=== PATIENT | female | born 1965 | race American Indian/Alaskan Native ===

== ENCOUNTER 2017-11-23 13:33 | Emergency (ER) | payer OTHER ==
--- NOTE | 2017-11-23 13:48 | Emergency Department Report ---
Blank Doc - Documentation Documentation: Patient is a 52-year-old black female who is coming in with 10 to lower abdominal pain. Patient states she has intense pain started at 3 AM in the suprapubic region. Patient has not urinated but does not feel the sensation that she has an urge to urinate. Patient denies any vaginal bleeding trauma. Patient states the pain radiates to her lower back was midline and is not flank. Patient extremely uncomfortable and will not put her legs down she is holding her legs in a position as though she is in labor. Patient will be given something for pain and will be sent for CT abdomen and pelvis with contrast urinalysis and blood work will be ordered as well. Is
[2017-11-23] MEDS ORDERED: MORPHINE IV ONE (13:50)
[2017-11-23] MEDS ORDERED: TORADOL IV ONE (13:50)
[2017-11-23] MEDS ORDERED: ZOFRAN IV ONE (13:50)
[2017-11-23 14:06] LABS: Basophils # (Auto) 0.1 K/mm3 (0.0-0.1); Basophils % (Auto) 0.6 % (0.0-1.8); Eosinophils % (Auto) 0.1 % (0.0-4.3); Lymphocytes # (Auto) 0.7 K/mm3 (1.2-5.4); Monocytes # (Auto) 0.7 K/mm3 (0.0-0.8); Monocytes % (Auto) 6.2 % (0.0-7.3)
[2017-11-23 14:10] LABS: Hematocrit 37.9 % (30.3-42.9); Mean Corpuscular HGB Conc 32 % (30-34); Platelet Count 269 K/mm3 (140-440); Red Blood Count 5.94 M/mm3 (3.65-5.03); Red Cell Distribution Width 15.7 % (13.2-15.2)
[2017-11-23 14:15] LABS: Mean Corpuscular Hemoglobin 20 pg (28-32); Mean Corpuscular Volume 64 fl (79-97)
[2017-11-23 14:27] LABS: Alanine Aminotransferase 13 units/L (7-56); Albumin 4.3 g/dL (3.9-5); BUN/Creatinine Ratio 10; Blood Urea Nitrogen 5 mg/dL (7-17); Hemolysis Index 17
[2017-11-23 15:04] LABS: Basophils % (Manual) 0 % (0.0-1.8); Eosinophils % (Manual) 0 % (0.0-4.3); RBC Morphology Normal; Total Cells Counted 100
--- NOTE | 2017-11-23 15:14 | Cat Scan Report ---
FINAL REPORT PROCEDURE: CT ABDOMEN PELVIS W CON TECHNIQUE: Computerized axial tomography of the abdomen and pelvis was performed after the IV injection of iodinated nonionic contrast. HISTORY: severe abd pain COMPARISON: No prior studies are available for comparison. FINDINGS: Lower Lung mercer: There is a small amount of dependent atelectasis. Lung bases otherwise appear clear. Upper Abdomen: There is a 6.9 millimeter low-density nodule in the caudate lobe of the liver. This is difficult to characterize given its small size although appears represent a small hepatic cyst. The liver is otherwise unremarkable. The gallbladder, the adrenal glands, the pancreas in the spleen are unremarkable. Kidneys, Ureters and Urinary bladder: There is a sub centimeter low-density nodule in the periphery of the cortex of the left kidney which appears represent a small renal cortical cyst. There also appears to be a sub centimeter renal cortical cyst in the midportion of the right kidney laterally. Kidneys, the ureters and urinary bladder otherwise are unremarkable. Retroperitoneum: Abdominal aorta appears normal. Nonspecific subcentimeter lymph nodes are seen in the retroperitoneum. No pathologically enlarged lymph nodes are identified. Bowel: No focal bowel abnormalities are identified with the exception of minimal diverticulosis left side of the colon. Normal-appearing appendix is seen in the right lower quadrant. There is some thickening or fluid in the pericolonic gutter on the right and left inferiorly. Moderate size umbilical hernia visualized containing adipose tissue. No herniated loops of bowel are seen. Reproductive organs: Uterus is deviated to the left of midline. There appears to be a sub serosal nodule in the right side of the fundus of the uterus measuring 1.4 centimeters suggesting a sub serosal fibroid. Small to moderate amount of free fluid is seen in the cul-de-sac extending to the right and left adnexa greater on the right than the left. Margins of the right ovary are slightly ill-defined. Small cystic changes seen in the right ovary. Other: No acute bony abnormalities are seen. IMPRESSION: Small hepatic cyst visualized as well as small renal cortical cyst. Small to moderate amount of free fluid seen in the cul-de-sac extending to the right left adnexa although greater on the right than the left. Margin the right ovary slightly ill-defined. The ovary does not appear to be enlarged. If clinically indicated pelvic ultrasound could be obtained for further evaluation. Small cystic changes visualized. Small amount of fluid or minimal thickening visualized in the inferior aspect of the right and left pericolonic gutters. Minimal colonic diverticulosis without evidence of diverticulitis. Moderate umbilical hernia as described.
--- NOTE | 2017-11-23 15:33 | Emergency Department Report ---
ED Female HPI - General Chief complaint: Urogenital-Female Stated complaint: vaginal pain Time Seen by Provider: 11/23/17 13:42 Source: patient, family Mode of arrival: Stretcher Limitations: No Limitations - History of Present Illness Initial comments: Patient is a 52-year-old black female who is coming in with pain 10/10 to lower abdominal pain. Patient states she has intense pain started at 3 AM in the suprapubic region. Patient has not urinated but does not feel the sensation that she has an urge to urinate. Patient denies any vaginal bleeding trauma. Patient states the pain radiates to her lower back was midline and is not flank. She denies any fever or chills. Patient does have low-grade temperature. Positive nausea or vomiting. Pain is 10 out of 10 and cramping. Nothing makes it better and nothing makes it worse. Patient blood pressure on arrival is 180/120 and history of high blood pressure on medication, which she did not take today.. MD Complaint: pelvic pain, other (nausea and vomiting) -: This morning Location: suprapubic Radiation: L flank Severity: severe Severity scale (0 -10): 10 Quality: cramping, other (pressure and reports "I feel like something is falling out") Consistency: constant Improves with: none Worsens with: none Are you Now?: No Last Menstrual Period: 11/23/17 (today) EDC: 08/30/18 Associated Symptoms: abdominal pain. denies: vaginal discharge, vaginal bleeding, nausea/vomiting, fever/chills, headaches, loss of appetite, dysuria, hematuria, rash, seizure, shortness of breath, syncope, weakness - Related Data Sexually active: Yes Previous Rx's Medication Instructions Recorded Last Taken Type Cyclobenzaprine [Flexeril 10mg] 10 mg PO TID PRN #30 tablet 11/23/14 Unknown Rx Gabapentin [Neurontin] 300 mg PO QHS #30 capsule 11/23/14 Unknown Rx Metoprolol [Lopressor TAB] 12.5 mg PO BID #60 tablet 11/23/14 Unknown Rx traMADol [Ultram 50 MG tab] 50 mg PO Q4H PRN #20 tablet 11/23/14 Unknown Rx Acetaminophen [Non-Aspirin Extra 500 mg PO Q8H PRN #12 tablet 11/23/17 Unknown Rx Strength] Levofloxacin [Levaquin] 750 mg PO QDAY #10 tablet 11/23/17 Unknown Rx Naproxen [Naprosyn TAB] 500 mg PO BID PRN #12 tablet 11/23/17 Unknown Rx Promethazine [Phenergan TAB] 25 mg PO Q8HR PRN #12 tab 11/23/17 Unknown Rx Allergies Allergy/AdvReac Type Severity Reaction Status Date / Time No Known Allergies Allergy Verified 11/12/13 22:33 ED Review of Systems ROS: Stated complaint: vaginal pain Other details as noted in HPI Comment: All other systems reviewed and negative Constitutional: no symptoms reported ENT: denies: throat pain, congestion Respiratory: no symptoms reported Cardiovascular: denies: chest pain, palpitations, dyspnea on exertion, orthopnea , edema, syncope, paroxysmal nocturnal dyspnea Gastrointestinal: abdominal pain, nausea, vomiting. denies: diarrhea, constipation, melena, hematochezia Genitourinary: other (pressure and feels like something is falling out of her vagina). denies: urgency, dysuria, frequency, hematuria, discharge, dyspareunia Musculoskeletal: back pain. denies: joint swelling, arthralgia, myalgia Skin: denies: rash Neurological: denies: headache, weakness, numbness, paresthesias, confusion, abnormal gait, vertigo ED Past Medical Hx - Past Medical History Previous Medical History?: Yes Hx Hypertension: Yes - Surgical History Past Surgical History?: Yes Additional Surgical History: left foot surgery. tubal ligation - Family History Family history: hypertension - Social History Smoking Status: Never Smoker Substance Use Type: None - Medications Home Medications: Home Medications Medication Instructions Recorded Confirmed Last Taken Type Cyclobenzaprine [Flexeril 10mg] 10 mg PO TID PRN #30 tablet 11/23/14 05/04/16 Unknown Rx Gabapentin [Neurontin] 300 mg PO QHS #30 capsule 11/23/14 05/04/16 Unknown Rx Metoprolol [Lopressor TAB] 12.5 mg PO BID #60 tablet 11/23/14 05/04/16 Unknown Rx traMADol [Ultram 50 MG tab] 50 mg PO Q4H PRN #20 tablet 11/23/14 05/04/16 Unknown Rx Acetaminophen [Non-Aspirin Extra 500 mg PO Q8H PRN #12 tablet 11/23/17 Unknown Rx Strength] Levofloxacin [Levaquin] 750 mg PO QDAY #10 tablet 11/23/17 Unknown Rx Naproxen [Naprosyn TAB] 500 mg PO BID PRN #12 tablet 11/23/17 Unknown Rx Promethazine [Phenergan TAB] 25 mg PO Q8HR PRN #12 tab 11/23/17 Unknown Rx ED Physical Exam - General Limitations: No Limitations General appearance: alert, in no apparent distress - Head Head exam: Present: atraumatic, normocephalic, normal inspection - Eye Eye exam: Present: normal appearance, PERRL, EOMI. Absent: nystagmus, periorbital swelling, periorbital tenderness Pupils: Present: normal accommodation - ENT ENT exam: Present: normal exam, normal orophraynx, mucous membranes moist - Neck Neck exam: Present: normal inspection, tenderness, full ROM, other (no cspine tenderness). Absent: meningismus, lymphadenopathy, thyromegaly - Respiratory Respiratory exam: Present: normal lung sounds bilaterally. Absent: respiratory distress, chest wall tenderness - Cardiovascular Cardiovascular Exam: Present: regular rate, normal rhythm, normal heart sounds. Absent: systolic murmur, diastolic murmur - GI/Abdominal GI/Abdominal exam: Present: soft, tenderness (left pelvic area tenderness), normal bowel sounds. Absent: distended, guarding, rebound, rigid, hyperactive bowel sounds, hypoactive bowel sounds, organomegaly, mass, bruit, pulsatile mass , hernia - External exam: Present: normal external exam - Extremities Exam Extremities exam: Present: normal inspection, full ROM, normal capillary refill , other (no clubbing, cyanosis or edema.). Absent: tenderness, pedal edema, joint swelling, calf tenderness - Back Exam Back exam: Present: normal inspection, full ROM, CVA tenderness (L), other ( ambulates without any difficulties). Absent: tenderness, CVA tenderness (R), muscle spasm, paraspinal tenderness, vertebral tenderness, rash noted - Neurological Exam Neurological exam: Present: alert, oriented X3, normal gait, reflexes normal. Absent: motor sensory deficit - Psychiatric Psychiatric exam: Present: normal affect, normal mood - Skin Skin exam: Present: warm, dry, intact, normal color. Absent: rash ED Course Vital Signs 11/23/17 11/23/17 11/23/17 13:35 14:07 16:37 Temperature 99.0 F 101.2 F H Pulse Rate 99 H 126 H Respiratory 18 18 18 Rate Blood Pressure 180/120 Blood Pressure 117/67 [Left] O2 Sat by Pulse 96 100 Oximetry 11/23/17 18:13 Temperature 98.9 F Pulse Rate Respiratory Rate Blood Pressure Blood Pressure [Left] O2 Sat by Pulse Oximetry Vital Signs 11/23/17 11/23/17 11/23/17 13:35 14:07 16:37 Temperature 99.0 F 101.2 F H Pulse Rate 99 H 126 H Respiratory 18 18 18 Rate Blood Pressure 180/120 Blood Pressure 117/67 [Left] O2 Sat by Pulse 96 100 Oximetry Vital Signs 11/23/17 11/23/17 11/23/17 13:35 14:07 16:37 Temperature 99.0 F 101.2 F H Pulse Rate 99 H 126 H Respiratory 18 18 18 Rate Blood Pressure 180/120 Blood Pressure 117/67 [Left] O2 Sat by Pulse 96 100 Oximetry 11/23/17 18:13 Temperature 98.9 F Pulse Rate Respiratory Rate Blood Pressure Blood Pressure [Left] O2 Sat by Pulse Oximetry - Reevaluation(s) Reevaluation #1: 11/23/17 14:45 Patient received morphine 4 mg IV and Zofran 4 mg IV in emergency room. She also received Toradol 30 mg IV. She voiced relief of pain down to 2 out of 10. Abdomen tender to palpate in the left pelvic area. Reevaluation #2: 11/23/17 16:46 Patient labs results shows that she has normal white count of 10, although I'm not sure whether baseline white count is. She does have shift into the left which shows bacterial infection. Urinalysis shows she has white blood cell, moderate amount of blood which could be from her menses which she started today. Trace ketone, elevated specific gravity and 1+ bacteria. Urine culture sent and pending. Urine is negative. BMP is stable except she has mild decrease in sodium and chloride, slightly elevated bilirubin. Slight elevation in blood glucose which patient says she is eaten today. IV fluid normal saline started. Patient received Rocephin 1 g IM for mild pyelonephritis. Abdominal exam with minimal tenderness to left lower quadrant but patient says she feels better. Reevaluation #3: 11/23/17 17:52 Patient received 1 L of normal saline IV. She is feeling better and able to tolerate oral liquids. ED Medical Decision Making - Lab Data Result diagrams: 11/23/17 13:53 11/23/17 13:53 Lab Results 11/23/17 11/23/17 11/23/17 Range/Units 13:53 13:53 15:24 WBC 10.5 (4.5-11.0) K/mm3 RBC 5.94 H (3.65-5.03) M/mm3 Hgb 12.0 (10.1-14.3) gm/dl Hct 37.9 (30.3-42.9) % MCV 64 L (79-97) fl MCH 20 L (28-32) pg MCHC 32 (30-34) % RDW 15.7 H (13.2-15.2) % Plt Count 269 (140-440) K/mm3 Lymph % (Auto) 7.0 L (13.4-35.0) % [place] % (Auto) 6.2 (0.0-7.3) % Eos % (Auto) 0.1 (0.0-4.3) % Baso % (Auto) 0.6 (0.0-1.8) % Lymph # 0.7 L (1.2-5.4) K/mm3 [place] # 0.7 (0.0-0.8) K/mm3 Eos # 0.0 (0.0-0.4) K/mm3 Baso # 0.1 (0.0-0.1) K/mm3 Add Manual Diff Complete Total Counted 100 Seg Neutrophils % 86.1 H (40.0-70.0) % Seg Neuts % (Manual) 84.0 H (40.0-70.0) % Band Neutrophils % 0 % Lymphocytes % (Manual) 10.0 L (13.4-35.0) % Reactive Lymphs % (Man) 0 % Monocytes % (Manual) 6.0 (0.0-7.3) % Eosinophils % (Manual) 0 (0.0-4.3) % Basophils % (Manual) 0 (0.0-1.8) % Metamyelocytes % 0 % Myelocytes % 0 % Promyelocytes % 0 % Blast Cells % 0 % Nucleated RBC % Not Reportable Seg Neutrophils # 9.1 H (1.8-7.7) K/mm3 Seg Neutrophils # Man 8.8 H (1.8-7.7) K/mm3 Band Neutrophils # 0.0 K/mm3 Lymphocytes # (Manual) 1.1 L (1.2-5.4) K/mm3 Abs React Lymphs (Man) 0.0 K/mm3 Monocytes # (Manual) 0.6 (0.0-0.8) K/mm3 Eosinophils # (Manual) 0.0 (0.0-0.4) K/mm3 Basophils # (Manual) 0.0 (0.0-0.1) K/mm3 Metamyelocytes # 0.0 K/mm3 Myelocytes # 0.0 K/mm3 Promyelocytes # 0.0 K/mm3 Blast Cells # 0.0 K/mm3 WBC Morphology Not Reportable Hypersegmented Neuts Not Reportable Hyposegmented Neuts Not Reportable Hypogranular Neuts Not Reportable Smudge Cells Not Reportable Toxic Granulation Not Reportable Toxic Vacuolation Not Reportable Dohle Bodies Not Reportable Pelger-Huet Anomaly Not Reportable Jessica Rods Not Reportable Platelet Estimate Not Reportable Clumped Platelets Not Reportable Plt Clumps, EDTA Not Reportable Large Platelets Not Reportable Giant Platelets Not Reportable Platelet Satelliting Not Reportable Plt Morphology Comment Not Reportable RBC Morphology Normal Dimorphic RBCs Not Reportable Polychromasia Not Reportable Hypochromasia Not Reportable Poikilocytosis Not Reportable Anisocytosis Not Reportable Microcytosis Not Reportable Macrocytosis Not Reportable Spherocytes Not Reportable Pappenheimer Bodies Not Reportable Sickle Cells Not Reportable Target Cells Not Reportable Tear Drop Cells Not Reportable Ovalocytes Not Reportable Helmet Cells Not Reportable [place] Bodies Not Reportable [place] Rings Not Reportable [place] Cells Not Reportable Bite Cells Not Reportable Crenated Cell Not Reportable Elliptocytes Not Reportable Acanthocytes (Spur) Not Reportable Rouleaux Not Reportable Hemoglobin C Crystals Not Reportable Schistocytes Not Reportable Malaria parasites Not Reportable Aris Bodies Not Reportable Hem Pathologist Commnt No Sodium 134 L (137-145) mmol/L Potassium 4.0 (3.6-5.0) mmol/L Chloride 95.5 L (98-107) mmol/L Carbon Dioxide 24 (22-30) mmol/L Anion Gap 19 mmol/L BUN 5 L (7-17) mg/dL Creatinine 0.5 L (0.7-1.2) mg/dL Estimated GFR > 60 ml/min BUN/Creatinine Ratio 10 % Glucose 132 H (65-100) mg/dL Calcium 9.0 (8.4-10.2) mg/dL Total Bilirubin 1.50 H (0.1-1.2) mg/dL AST 19 (5-40) units/L ALT 13 (7-56) units/L Alkaline Phosphatase 70 (35-129) units/L Total Protein 7.8 (6.3-8.2) g/dL Albumin 4.3 (3.9-5) g/dL Albumin/Globulin Ratio 1.2 % Urine Color Yellow (Yellow) Urine Turbidity Clear (Clear) Urine pH 6.0 (5.0-7.0) Ur Specific [place] 1.050 H (1.003-1.030) Urine Protein <15 mg/dl (Negative) mg/dL Urine Glucose (UA) Neg (Negative) mg/dL Urine Ketones Tr (Negative) mg/dL Urine Blood Mod (Negative) Urine Nitrite Neg (Negative) Urine Bilirubin Neg (Negative) Urine Urobilinogen 4.0 (<2.0) mg/dL Ur Leukocyte Esterase Neg (Negative) Urine WBC (Auto) 7.0 H (0.0-6.0) /HPF Urine RBC (Auto) 8.0 (0.0-6.0) /HPF U Epithel Cells (Auto) 1.0 (0-13.0) /HPF Urine Bacteria (Auto) 1+ (Negative) /HPF Urine Mucus Few /HPF Urine HCG, Qual Negative (Negative) Urine culture pending - Radiology Data Radiology results: report reviewed CT scan of the abdomen and pelvis shows minimal colonic diverticulosis without evidence of diverticulitis. Moderate umbilical hernia as described. Hernia containing adipose tissue. No herniated loops of bowel seen Small hepatic cysts visualized as well as small renal cortical cyst. Small to moderate amount of free fluid seen in the cul-de-sac extending to the right left adnexa although greater on the right than the left. Margin the right ovary slightly ill-defined. The pelvic ultrasound could be obtained for further evaluation small cystic changes visualized. Small amount of free fluid or minimal thickening visualized in the inferior aspect of the right and left para cannot colonic gutters normal-appearing appendix seen. Critical care attestation.: If time is entered above; I have spent that time in minutes in the direct care of this critically ill patient, excluding procedure time. ED Disposition Clinical Impression: Hepatic cyst, Renal cyst, Diverticulosis large intestine w/o perforation or abscess w/o bleeding, Umbilical hernia without obstruction and without gangrene , Pyelonephritis, Fever chills, Acute flank pain, Elevated blood pressure, situational Abdominal pain Qualifiers: Abdominal location: lower abdomen, unspecified Qualified Code(s): R10.30 - Lower abdominal pain, unspecified Nausea & vomiting Qualifiers: Vomiting type: unspecified Vomiting Intractability: non-intractable Qualified Code(s): R11.2 - Nausea with vomiting, unspecified Disposition: - TO HOME OR SELFCARE Is pt being admited?: No Does the pt Need Aspirin: No Condition: Stable Instructions: Diverticulosis (ED), Fever in Adults (ED), Umbilical Hernia (ED) , Acute Pyelonephritis (ED), Acute Nausea and Vomiting (ED), Diverticulosis Diet (ED), Abdominal Pain (ED), Hypertension (ED), Flank Pain (ED) Additional Instructions: You have a small cyst on the left kidney and also on liver. He will need to follow up with sanitation manager and federal mediator. See discharge instruction paperwork for referrals. You have umbilical hernia which contained fat. He will need to follow-up with surgery and sanitation manager. You have diverticulosis please see discharge instructions on diverticulosis and also management with diet. You have a kidney infection and will need to take Levaquin once a day 7 days. Urethritis started on IV antibiotic today. Please start Levaquin today. Please increase her fluid intake to 2-3 L of water and/or cranberry juice but avoid drinking carbonated beverages. Please follow up with primary care physician and if he do not have a primary care physician follow-up at the outside [facility] Center. Call tomorrow to schedule an appointment. Please state medication as prescribed. Her blood pressure was elevated upon arrival to the emergency room so, you will need to monitor your blood pressure daily and take to primary care visit with you. Prescriptions: Acetaminophen [Non-Aspirin Extra Strength] 500 mg PO Q8H PRN #12 tablet PRN Reason: Fever Levofloxacin [Levaquin] 750 mg PO QDAY #10 tablet Naproxen [Naprosyn TAB] 500 mg PO BID PRN #12 tablet PRN Reason: pain and/or fever Promethazine [Phenergan TAB] 25 mg PO Q8HR PRN #12 tab PRN Reason: Nausea Referrals: [facility] [Provider Group] - 3-5 Days PRIMARY CAREMD [Primary Care Provider] - 11/24/17 [facility] [Outside] - 11/24/17 FAVIOLA RODRIGUEZ MD [Staff Physician] - 11/27/17 CODIE POWERS DO [Staff Physician] - 11/27/17 Forms: Accompanied Note, Work/School Release Form(ED)
[2017-11-23 15:43] LABS: Bacteria,Urine 1+ /HPF (Negative); Bilirubin,Urine NEG (Negative); Blood,Urine MOD (Negative); Color,Urine Yellow (Yellow); Mucus,Urine FEW /HPF; Protein,Urine <15 mg/dL mg/dL (Negative)
[2017-11-23 15:45] LABS: HCG Qualitative,Urine Negative (Negative)
[2017-11-23] MEDS ORDERED: XYLOCAINE 1% MPF 5 mL INFILTRATI ONE (15:58)
[2017-11-23] MEDS ORDERED: ROCEPHIN IM STA (15:58)
[2017-11-23 16:40] VITALS: BP 117/67
[2017-11-23] MEDS ORDERED: NACL 0.9% 1000 ML 1,000 ML IV ONE (16:49)
[2017-11-23] MEDS ORDERED: NORCO 5/325 PO ONE (16:49)
[2017-11-23] MEDS ORDERED: REGLAN IV ONE (16:49)
== END 2017-11-23 18:52 | disposition home or self-care (01) ==
LOC: ED 13:33
DX: K57.30 Diverticulosis of large intestine without perforation or abscess without bleeding (principal); K76.89 Other specified diseases of liver; N28.1 Cyst of kidney, acquired; K46.9 Unspecified abdominal hernia without obstruction or gangrene; N12 Tubulo-interstitial nephritis, not specified as acute or chronic; I10 Essential (primary) hypertension
CPT/HCPCS: 36415; 74177; 80053; 81001; 81025; 85007; 85025; 96361; 96372; 96374; 96375; 99284; J0696; J1885; J2270; J2405; J2765; J7030; Q9967